=== PATIENT | male | born 1955 | race Caucasian/White ===

== ENCOUNTER 2019-02-15 11:12 | Day surgery (SDC) | payer BC ==
--- OUTSIDE RECORDS SUMMARY | 2019-02-13 10:07 | XMSREPORT | Referral Summary ---
:1955 Author Organization [facility] Address [address] [place] [address] [address] [place] [address] Care Team Providers Name Role Phone Rochelle Mcmullen PA-C Primary Care Provider Rochelle Mcmullen PA-C Attributed Provider Reason for Referral Transitions of Care (Routine) Status Reason Specialty Diagnoses / Referred By Referred To Procedures Contact Contact New Request Service Not Diagnoses Weight loss, unintentional Nausea Early satiety Rochelle Mcmullen, Health, [facility] Available at [place] [facility] [address] [place] [address] [place] [id number] Phone: Fax: Encounter Details Date Type Department Care Team Description 02/12/2019 Orders Only [facility] Rochelle Mcmullen, Weight loss, unintentional (Primary Dx); [facility] [place] Nausea; [address] [place] [address] [place] [id number] Allergies Active Allergy Reactions Severity Noted Date Comments Hydrocodone Other (Specify in Comments) 02/17/2016 "can't sleep" Indomethacin Hives (High) High 04/03/2012 Prednisone Hives (High) High 04/03/2012 Sulfa Drugs Hives (High) High 12/02/2015 documented as of this encounter (statuses as of 02/12/2019) Medications Medication Sig Dispensed Refills Start Date End Date Status Multiple Take by mouth 1 0 Active Vitamins-Minerals time per day. (MULTIVITAMIN PO) aspirin 81 mg enteric Take 81 mg by 0 Active coated tablet mouth 1 time per day ALBUTEROL (VENTOLIN Inhale 2 puffs 2 Inhaler 0 09/22/2017 Active BRAND) 108 mcg (90 orally every 4 base) act HFA to 6 hours as inhalerIndications: needed for cough Persistent cough Shake well before using. atorvaSTATin (LIPITOR) TAKE 1 TABLET 90 tablet 3 03/30/2018 Active 20 mg (20 MG) BY MOUTH tabletIndications: Pure 1 TIME PER DAY hyperglyceridemia amLODIPine (NORVASC) 5 TAKE 1 TABLET (5 90 tablet 3 03/30/2018 Active mg tabletIndications: MG) BY MOUTH 1 Essential hypertension TIME PER DAY allopurinol (ZYLOPRIM) TAKE 1 TABLET 90 tablet 3 03/30/2018 Active 300 mg (300 MG) BY tabletIndications: MOUTH 1 TIME PER Chronic gout without DAY tophus, unspecified cause, unspecified site fenofibrate (LOFIBRA) TAKE 1 TABLET 90 tablet 3 03/30/2018 Active 160 mg (160 MG) BY tabletIndications: Pure MOUTH 1 TIME PER hyperglyceridemia DAY losartan 100 mg Take 1 tablet 90 tablet 3 03/30/2018 Active tabletIndications: (100 mg) by Essential hypertension mouth 1 time per day miscellaneous Naltrexone (Avicel) 2mg Capsule 0 Active medication MISC Take 1 Capsule by mouth once daily at bedtime metFORMIN (GLUCOPHAGE) Take 0.5 tablets 180 tablet 2 01/31/2019 Active 1000 MG (500 mg) by tabletIndications: Type mouth 2 times a 2 diabetes mellitus day with meals with diabetic polyneuropathy, without long-term current use of insulin (HCC) documented as of this encounter (statuses as of 02/12/2019) Active Problems Problem Noted Date Tingling of both feet 12/08/2018 SHI (obstructive sleep apnea) 06/27/2018 Overview: HSAT: 01/24/2018 (approximately 281 pounds) AHI: 79.5 BiPAP 20/15 cm of water Hybrid fullface mask [place] Sleep-related hypoventilation 06/27/2018 Obesity, morbid, BMI 40.0-49.9 03/06/2018 Mixed hyperlipidemia 02/13/2018 Hyponatremia 09/25/2017 Bilateral leg edema 09/19/2017 Rosacea 03/09/2017 Carpal tunnel syndrome on left 12/30/2015 Type 2 diabetes mellitus with diabetic polyneuropathy, without long-term 11/13 current use of insulin Peripheral neuropathy 04/07/2015 Pes planus of both feet 08/29/2014 Acute idiopathic gout of right knee 11/19/2013 Plantar fasciitis, bilateral 01/23/2013 Gout 03/15/2011 Alcohol abuse 03/15/2011 Essential hypertension 09/01/2009 documented as of this encounter (statuses as of 02/12/2019) Resolved Problems Problem Noted Date Resolved Date Other specified abnormal findings of blood chemistry 03/15/2011 06/22/2012 Disturbance of skin sensation 08/23/2009 06/22/2012 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 06/22/2012 documented as of this encounter (statuses as of 02/12/2019) Immunizations Name Administration Dates Next Due Ceftriaxone 1000mg 11/14/2015 Diphenhydramine 50mg/ml 12/02/2015 FLU VACCINE SINGLE DOSE 01/30/2019 0.5mL(6MO+Fluzone/Flulaval/Fluarix,3YR+Afluria) Lidocaine 1% 11/14/2015 TDAP 11/23/2015, 06/20/2009 documented as of this encounter Social History Tobacco Use Types Packs/Day Years Used Date Never Smoker Smokeless Tobacco: Never Used Alcohol Use Drinks/Week oz/Week Comments Yes 18 Cans of beer 18.0 alcohol use: 7+ (use/day or use/week), 3-4 per day Sex Assigned at Date Recorded Not on file Job Start Date Occupation Industry Not on file Not on file Not on file Travel History Travel Start Travel End No recent travel history available. documented as of this encounter Functional Status Functional Status Response Date of Assessment Is the person deaf or does he/she have serious difficulty No 09/25/2017 hearing? Is this person blind or does he/she have difficulty No 09/25/2017 seeing even when wearing glasses? Do you have difficulty with walking, balance, climbing No 09/25/2017 stairs, or had a fall in the last 3 months? Does the patient have difficulty dressing or bathing? No 09/26/2017 Because of a physical, mental, or emotional condition; No 09/26/2017 does this person have difficulty doing errands alone such as visiting a doctor's office or shopping? Cognitive Status Response Date of Assessment Because of a physical, mental, or emotional condition; No 09/26/2017 does this person have serious difficulty concentrating, remembering, or making decisions? documented as of this encounter Plan of Treatment Date Type Specialty Care Team Description 02/14/2019 Office Visit Neurology Maddie Camejo MD [address] [place] [address] [phone] 02/27/2019 Hospital Encounter Gastroenterology Micheal Strickland MD Weight loss [address] [place] [address] [phone] 02/27/2019 Surgery Gastroenterology Micheal Strickland MD UPPER ENDOSCOPY [address] [place] [address] [phone] Name Type Priority Associated Diagnoses Order Schedule CLINIC REFERRAL Referral Routine Weight loss, Ordered: 02/12/2019 ENDOSCOPY NON ONE CHART unintentional Nausea Early satiety documented as of this encounter Goals Goal Patient Goal Associated Recent Patient-Stated? Author Type Problems Progress HGB A1C < 7 Result Component 5.4 No Rochelle Mcmullen, PAGlenda documented as of this encounter Implants Implanted Type Area Hide Buffer Device Shelf Model / Identifier Expiration Serial / Lot Date Splt Nasal Lakeshia Thin .25 N -[id number]/[id number] - Sn/A Neurology N/A: [employer] [id number] / Implanted: Qty: 1 on 06/08/2012 by Beatrice Hyman MD at [facility] NOSE N/A / [id number] documented as of this encounter Visit Diagnoses Diagnosis Weight loss, unintentional - Primary Loss of weight Nausea Nausea alone Early satiety documented in this encounter
[2019-02-15] MEDS ORDERED: Sodium Chloride 0.9% 10 ML Syringe FLUSH PRN (11:30)
[2019-02-15] MEDS ORDERED: Lactated Ringers 1,000 ML IV SCH (11:30)
--- NOTE | 2019-02-15 11:54 | PCM.HPR ---
H & P Addendum review - H & P Addendum Review Date of Original H & P: 01/30/19 Date Reviewed: 02/15/19 Time Reviewed: 11:54 Patient was Examined: No Changes
[2019-02-15] MEDS ORDERED: Propofol 200 MG/20 ML SDV ONE (12:00)
--- NOTE | 2019-02-15 12:29 | PCM.OPNOTE ---
- General Post-Op/Procedure Note Date of Surgery/Procedure: 02/15/19 Operative Procedure(s): EGD with bx Findings: Mild Gastritis and esophagitis Pre Op Diagnosis: Wt Loss Post-Op Diagnosis: Same Anesthesia Technique: ALEXIS Primary Surgeon: Casimiro Hopson Complications: None Condition: Good
--- NOTE | 2019-02-15 13:49 | OR ---
Date of Procedure: 02/15/2019 PREOPERATIVE DIAGNOSIS: Weight loss. POSTOPERATIVE DIAGNOSES: 1. Mild gastritis. 2. Mild esophagitis. PROCEDURE: Esophagogastroduodenoscopy with biopsy. ANESTHESIA: IV sedation. DESCRIPTION OF PROCEDURE: The patient was brought to the procedure room where he was placed on his left side and IV sedation administered. Oral bite block was placed and the upper endoscope advanced into the esophagus under direct vision without difficulty. Vocal cords were viewed and were normal. The scope was advanced to third portion of the duodenum. Duodenum and pylorus were normal. Antrum does show some evidence of mild chronic gastritis and one small erosion that appeared to be healed. I did take 2 random biopsies from this area. The body and fundus were normal. Retroflexion was normal. The squamocolumnar junction was slightly irregular, and there was some evidence of mild esophagitis. I did take 3 random biopsies from the distal esophagus and sent for pathology review. Air was removed and the scope withdrawn through the remaining esophagus, which appeared normal. The patient tolerated the procedure well and returned to Recovery in stable condition. I will have the patient follow up with Rochelle Mcmullen next week for review of pathology report. I did not see any obvious source of his weight loss today. ANTONIO FORTE MD /[id number]
== END 2019-02-15 13:15 | disposition home or self-care (01) ==
LOC: LL.SDS 11:12
PROVIDERS: ATTEND Surgery
DX: R63.4 Abnormal weight loss (principal); K29.50 Unspecified chronic gastritis without bleeding; K20.9 Esophagitis, unspecified; I10 Essential (primary) hypertension; M10.9 Gout, unspecified; E11.42 Type 2 diabetes mellitus with diabetic polyneuropathy; E78.2 Mixed hyperlipidemia; E66.01 Morbid (severe) obesity due to excess calories; G47.33 Obstructive sleep apnea (adult) (pediatric); Z79.899 Other long term (current) drug therapy; Z79.84 Long term (current) use of oral hypoglycemic drugs; Z79.82 Long term (current) use of aspirin; Z88.6 Allergy status to analgesic agent; Z88.8 Allergy status to other drugs, medicaments and biological substances; Z88.2 Allergy status to sulfonamides; Z88.5 Allergy status to narcotic agent; Z68.39 Body mass index [BMI] 39.0-39.9, adult; Z99.89 Dependence on other enabling machines and devices
CPT/HCPCS: 82962; J2704; J7120